=== PATIENT | female | born 1980 | race Caucasian/White ===

== ENCOUNTER 2023-08-17 15:08 | Outpatient (REF) | payer SELFPAY ==
[2023-08-18 09:39] LABS: Measles IgG Antibody Positive (See Note); Varicella IgG Antibody Positive (See Note)
[2023-08-18 09:42] LABS: Mumps Antibody IgG Positive (See Note); Rubella IgG Ab (UVM) Positive (See Note)
== END 2023-08-17 15:09 | disposition home or self-care (01) ==
LOC: LBO 15:08
PROVIDERS: Visit Provider Nurse Practitioner Family
DX: Z02.1 Encounter for pre-employment examination (principal)
CPT/HCPCS: 36415; 86787; 86735; 86762; 86765